=== PATIENT | male | born 1955 | race Caucasian/White ===

== ENCOUNTER 2018-09-05 09:40 | Outpatient (CLI) | payer BC ==
--- NOTE | 2018-09-05 12:09 | MRI ---
MRI LUMBAR SPINE WITHOUT CONTRAST: HISTORY: Low back pain, x several years. Progressive worsening. COMPARISON: None. TECHNIQUE: MRI lumbar spine is performed without intravenous Gadolinium administration. Multisequent ial, multiplanar imaging is performed. FINDINGS: Lumbar spine vertebral body height is maintained. There is no fracture. There is T1 marrow signal h ypointensity with associated T2 and STIR hyperintensity involving the left aspect of the L3-L4 disk s pace as well as predominantly the right aspect of the L4-L5 disk space. Type I Modic changes are fav ored. There is 3.1 mm of retrolisthesis of L3 upon L4. There is a T2 hyperintensity involving the left and right kidney which may represent cortical cysts. Conus medullaris terminates at the lower aspect of T12. T12-L1: Adequate disk hydration. No significant central canal stenosis. Neural foramen are patent. L1-L2: There is some desiccation with mild loss of disk space height. There is a generalized disk b ulge without any significant central canal stenosis. Right neural foramen is patent. Mild left fora perfecto narrowing. L2-L3: Desiccation with mild loss of disk space height. There is a generalized disk bulge without s ignificant central canal stenosis. Moderate bilateral neural foraminal narrowing. L3-L4: Desiccation with moderate loss of disk space height. There is a broad-based disk bulge with minimal central inferior disk extrusion. There is mild to moderate central canal stenosis. There is a small amount of fluid in both fact joints. Moderate right and left neural foraminal narrowing. L4-L5: There is a generalized disk bulge with mild to moderate central canal stenosis. There is aisha ateral facet hypertrophy. Moderate to severe right and mild left neural foraminal narrowing. L5-S1: There is a minimal central disk protrusion. No significant central canal stenosis. Mild aisha ateral neural foraminal narrowing. IMPRESSION: Degenerative changes of the lumbar spine as above. POS: CARLOS EDUARDO
== END 2018-09-05 09:41 | disposition home or self-care (01) ==
LOC: TBSIIMAG 09:40
PROVIDERS: ATTEND Neurological Surgery
DX: M54.5 Low back pain (principal); M47.816 Spondylosis without myelopathy or radiculopathy, lumbar region
CPT/HCPCS: 72148